=== PATIENT | female | born 2000 | race Caucasian/White ===

== ENCOUNTER 2024-03-20 12:20 | Emergency (ER) | payer OTHER, SELFPAY ==
[2024-03-20 12:52] VITALS: BP 108/72; PULSE 110; RESP 16; TEMP 36.2; O2SAT 99
[2024-03-20 13:34] LABS: EDSTREPNEGPOS1 Negative (Negative)
--- NOTE | 2024-03-20 13:44 | ED.URI ---
HPI - URI/Sore Throat General Chief Complaint: Upper Respiratory Infection Stated Complaint: Sore Throat Time Seen by Provider: 03/20/24 13:39 Source: patient and RN notes reviewed Mode of arrival: ambulatory Limitations: no limitations History of Present Illness HPI Narrative: Patient presents today with a 3 day history of sore throat, nasal congestion, bilateral ear pain. Reports sore throat has been worsening since onset. Denies fever or congestion. She has not tried any [id number] treatment prior to arrival. Reports pain is 7/10 with swallowing. Related Data Home Medications ?Medication ?Instructions ?Recorded ?Confirmed ?Last Taken ?Type drospirenone 3 mg-estetrol 14.2 mg 1 tablet PO DAILY 03/20/24 03/20/24 Unknown History (28) tablet (Nextstellis) escitalopram oxalate 5 mg tablet 5 mg PO DAILY 03/20/24 03/20/24 Unknown History Allergies Allergy/AdvReac Type Severity Reaction Status Date / Time No Known Allergies Allergy Verified 03/20/24 12:45 Review of Systems Review of Systems: CONSTITUTIONAL: Denies body aches, fever, chills, or sweats. EYES: Denies visual changes, redness, or discharge. ENT: Denies rhinorrhea. + sore throat, congestion, ear pain CARDIOVASCULAR: Denies chest pain, palpitations, or edema. RESPIRATORY: Denies cough or dyspnea. GASTROINTESTINAL: Denies abdominal pain, nausea, vomiting, or diarrhea. GENITOURINARY: Denies dysuria or hematuria. SKIN: Denies rash, itching, or wounds. MUSCULOSKELETAL: Denies back pain, joint pain, or myalgia. NEUROLOGIC: Denies headache, numbness, tingling, or weakness. PSYCH: Denies depression or anxiety. PMFSH Comments At time of signature, I have reviewed and agree with nursing past medical, surgical, social and family history unless otherwise noted. Please see nursing chart for further information. There is no relevant family history pertinent to the presenting complaint Exam Narrative: GENERAL: Mildly ill-appearing, well-nourished, and in no acute distress. HEAD: Normocephalic, atraumatic. EYES: EOMI. No redness or drainage. Conjunctivae normal. ENT: Mucous membranes pink and moist. Nares congested. No rhinorrhea. TMs normal bilaterally. Throat erythematous with moderate edema. No exudate. Tonsils 3+. Uvula midline. NECK: Normal AROM. Supple. Bilaterally anterior cervical chain lymphadenopathy CHEST: No respiratory distress. Clear to auscultation. HEART: Regular rate and rhythm. No murmur appreciated. EXTREMITIES: Normal range of motion. No edema. SKIN: Warm, dry, no rash. Capillary refill normal. Normal skin turgor. NEURO: No focal deficits. Alert and oriented x3. Gait steady. PSYCH: Normal affect. No signs of depression or anxiety. Course Course Level of Care: Express Care Visit Vital Signs Vital signs: Vital Signs Temperature 97.1 F L 03/20/24 12:52 Pulse Rate 110 H 03/20/24 12:52 Respiratory Rate 16 03/20/24 12:52 Blood Pressure 108/72 03/20/24 12:52 Pulse Oximetry 99 03/20/24 12:52 Oxygen Delivery Room Air 03/20/24 12:52 Temperature 97.1 F L 03/20/24 12:52 Pulse Rate 110 H 03/20/24 12:52 Respiratory Rate 16 03/20/24 12:52 Blood Pressure 108/72 03/20/24 12:52 Pulse Oximetry 99 03/20/24 12:52 Oxygen Delivery Room Air 03/20/24 12:52 Reviewed MDM - URI/Sore Throat MDM Narrative Medical decision making narrative: Rapid strep negative. Culture pending. Patient declined testing for COVID or influenza. Symptoms likely viral in etiology. Discussed axnt-[id number]-[id number] medication use and duration of illness. No prescription medications indicated at this time. Anticipatory guidance given. Differential Diagnosis Differential diagnosis: Likely upper respiratory infection, otitis media, viral infection, influenza, pharyngitis and other (Strep throat, COVID) Lab Data Attestation: I reviewed the patient's lab results. Labs: Lab Results 03/20/24 Range/Units 13:32 POC Grp A Strep Screen Negative (Negative) Critical Care Time Critical Care Time Critical Care Time: No Discharge Plan Discharge Clinical Impression: Pharyngitis Qualifiers: Pharyngitis/tonsillitis etiology: unspecified etiology Qualified Code(s): J02.9 - Acute pharyngitis, unspecified Patient Disposition: Home, Self-Care Condition: Stable Instructions: Pharyngitis (ED) Additional Instructions: Your rapid strep swab was negative today at [facility]. You will be notified in a few days if the culture comes back positive for strep, and appropriate antibiotics will be called in for you at that time. Your symptoms are likely due to a viral illness, which is not treated with antibiotics. Viral symptoms can be present for up to 7-10 days. Take Tylenol or ibuprofen for fever or pain. Rest and stay hydrated. Follow up with your PCP in 7 days if symptoms are not improving. Go to the ER immediately if [] any difficulty breathing or swallowing. Patient Language: Slovenian Prescriptions: No Action escitalopram oxalate 5 mg tablet 5 mg PO DAILY Nextstellis 3 mg- 14.2 mg (28) tablet 1 tablet PO DAILY Follow-up/Referrals: PHYSICIAN,[employer] [Primary Care Provider] - Time of Disposition: 13:47
== END 2024-03-20 13:55 | disposition home or self-care (01) ==
PROVIDERS: Emergency Provider Nurse Practitioner
DX: J02.9 Acute pharyngitis, unspecified (principal); J45.909 Unspecified asthma, uncomplicated
CPT/HCPCS: 87081; 87880; 99213; G0463

== ENCOUNTER 2025-03-20 09:21 | Emergency (ER) | payer OTHER, SELFPAY ==
[2025-03-20 09:42] VITALS: BP 116/69; PULSE 94; RESP 16; TEMP 36.4; O2SAT 99
[2025-03-20 09:49] LABS: EDSTREPNEGPOS1 Positive (Negative)
--- NOTE | 2025-03-20 10:11 | ED.URI ---
HPI - URI/Sore Throat General Chief Complaint: Upper Respiratory Infection Stated Complaint: Strep Symptoms Time Seen by Provider: 03/20/25 10:00 Source: patient and RN notes reviewed Mode of arrival: ambulatory Limitations: no limitations History of Present Illness HPI Narrative: 24-year-old female presents to the [facility] complaining of sore throat for approximately 2-3 days. Patient also reports having headache. Patient denies any fevers, any other upper respiratory symptoms, chest pain, breathing problems, vomiting or any other symptoms. Patient denies any significant past medical problems. Related Data Home Medications ?Medication ?Instructions ?Recorded ?Confirmed ?Last Taken ?Type drospirenone 3 mg-estetrol 14.2 mg 1 tablet PO DAILY 03/20/24 03/20/25 Unknown History (28) tablet (Nextstellis) Allergies Allergy/AdvReac Type Severity Reaction Status Date / Time No Known Allergies Allergy Verified 03/20/25 09:48 Review of Systems Review of Systems: CONSTITUTIONAL: Denies fever, chills, or sweats. EYES: Denies visual changes, redness, or discharge. ENT: Denies rhinorrhea, congestion, or otalgia. Positive for sore throat CARDIOVASCULAR: Denies chest pain, palpitations, or edema. RESPIRATORY: Denies cough or dyspnea. GASTROINTESTINAL: Denies abdominal pain, nausea, vomiting, or diarrhea. GENITOURINARY: Denies dysuria or hematuria. SKIN: Denies rash or itching. MUSCULOSKELETAL: Denies back pain, joint pain, or myalgia. NEUROLOGIC: Positive for headache. Negative for numbness, or weakness. PSYCHIATRIC: Denies anxiety or depression. All other systems reviewed are negative, except as documented in HPI. [facility] Past Medical History Medical History Depression Social History Social History Smoking status: Never smoker Alcohol intake: current Drinks per week: 1 Substance use: never Gender identity (if verbalized by the patient): Female Comments At the time of my signature, I reviewed and agree with the nursing past medical, surgical, social, and family history. There is no relevant family history pertinent to the patient complaint. Exam Narrative: GENERAL: This is a well-nourished, well-developed adult, in no apparent distress. They are non ill-appearing, nontoxic appearing. HEAD: normocephalic, atraumatic. EYES: Sclera clear/white. Conjunctiva normal. Vision is grossly intact. Extraocular movements intact EARS: External ears normal, auditory canals clear and without drainage, TMs normal without perforation. Hearing grossly intact. NOSE: External nose normal with no obvious nasal discharge, nasal turbinates without redness, no rhinorrhea. THROAT: Mucous membranes moist, posterior pharynx erythematous red and patchy. Uvula midline. NECK: Neck supple, mild tender cervical lymphadenopathy, no masses or thyromegaly. CARDIOVASCULAR: Regular rate and rhythm without murmurs, gallops, or rubs. RESPIRATORY: Clear to auscultation. Breath sounds equal bilaterally. No wheezes, rales, or rhonchi. SKIN: warm, Dry, intact with no suspicious lesions or rash, good texture and turgor. NEURO: awake, alert, and oriented to person, place and time. There were no obvious focal neurologic abnormalities. EXTREMITIES: No joint tenderness, effusion, or edema noted. BACK: Nontender without deformity. No CVA tenderness. Course Course Level of Care: Express Care Visit Vital Signs Vital signs: Vital Signs Temperature 97.6 F 03/20/25 09:42 Pulse Rate 94 03/20/25 09:42 Respiratory Rate 16 03/20/25 09:42 Blood Pressure 116/69 03/20/25 09:42 Pulse Oximetry 99 03/20/25 09:42 Temperature 97.6 F 03/20/25 09:42 Pulse Rate 94 03/20/25 09:42 Respiratory Rate 16 03/20/25 09:42 Blood Pressure 116/69 03/20/25 09:42 Pulse Oximetry 99 03/20/25 09:42 [facility] Narrative Medical decision making narrative: Rapid strep positive. Will treat with amoxicillin. Discussed physical exam findings. Advised supportive measures and signs/symptoms to go to the ER. Pt is appropriate for outpt treatment and f/u. Differential Diagnosis Differential Diagnosis: Differential diagnostic considerations for upper respiratory infection include upper respiratory infection, croup, otitis media, sinusitis, viral infection, bronchitis, influenza, pharyngitis, strep, uvulitis. Lab Data [facility] Lab Attestation statement: I personally reviewed the patient's lab results. Labs: Lab Results 03/20/25 Range/Units 09:49 POC Grp A Strep Screen Positive (Negative) Critical Care Time Critical Care Time Critical Care Time: No Discharge Plan Discharge Clinical Impression: Strep throat Patient Disposition: Home Condition: Stable Instructions: Antibiotic Form, Strep Throat (ED) Additional Instructions: You tested positive for strep throat. ?Please take the amoxicillin as prescribed until gone. ?You will be contagious for 24 hours after starting the medication. ?After 24 hours on antibiotics throw tooth brush away and start using a new one. Wash your sheets and cup/water bottle that is used daily. Do not share drinks. Take Tylenol or Ibuprofen for pain or fever, if able. ?Rest and stay hydrated. ?Follow up with your PCP in 3 days if symptoms are not improving. ?Go to the ER immediately if you develop worsening symptoms such as shortness of breath, difficulty swallowing. ? Patient Language: Trinidadian Prescriptions: New amoxicillin 500 mg tablet 500 mg PO Q12H 10 Days Qty: 20 0RF No Action Nextstellis 3 mg- 14.2 mg (28) tablet 1 tablet PO DAILY sertraline 25 mg tablet See Rx Instructions .ROUTE .COMPLEX Qty: 90 1RF Dose Instruction: Take 1 tablet by mouth once daily Rx Instructions: Take 1 tablet by mouth once daily Follow-up/Referrals: Joshua Dejesus DO [Primary Care Provider, [facility]] Time of Disposition: 10:08
== END 2025-03-20 10:28 | disposition home or self-care (01) ==
PROVIDERS: PCP Family Medicine
DX: J02.0 Streptococcal pharyngitis (principal); F32.A Depression, unspecified
CPT/HCPCS: 87880; 99213; G0463